=== PATIENT | male | born 2000 | race Caucasian/White ===

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

== ENCOUNTER → 2021-02-16 | Outpatient (CLI) | payer BC ==
--- NOTE | 2021-02-17 08:12 | US ---
EXAMINATION TYPE: US pelvic limited DATE OF EXAM: 02/16/2021 COMPARISON: NONE CLINICAL HISTORY: R10.2 Pelvic pain; I86.1 Scrotal varices. Left medial inguinal bulge noted intermit tently. TECHNIQUE: TA US No hernia is noted in right or left femoral area. No left medial hernia is seen superomedial left alen in at patient's area of pain. IMPRESSION: 1. No definite inguinal hernia by ultrasound.
--- NOTE | 2021-02-17 08:21 | US ---
EXAMINATION TYPE: US scrotum with doppler. Grayscale and color Doppler Duplex imaging performed of juan esquivel scrotum. DATE OF EXAM: 02/16/2021 COMPARISON: US CLINICAL HISTORY: R10.2 Pelvic pain; I86.1 Scrotal varices. Medial left inguinal pain and left scrota l pain intermittently. EXAM MEASUREMENTS: TESTICLES: Right Testicle: 4.7 x 2.7 x 1.9 cm Left Testicle: 3.9 x 3.7 x 2.0 cm EPIDIDYMIS HEAD: Right Epididymis: 0.6 x 0.8 x 0.9 cm Left Epididymis: 0.8 x 1.0 x 0.9 cm PW and Color flow Doppler was performed to assess for testicular vascularity; good bilateral color fl ow and waveforms are seen. There is no evidence of testicular torsion. Presence of hydroceles: very small amount of fluid is seen inferior right scrotal sac = 0.5 x 0.4 x 0.9cm Left epididymal head cyst is imaged = 0.3 x 0.3 x 0.3cm. Presence of varicoceles are noted in superior and inferior left scrotal sac as veins are dilated at 3 .0mm superiorly in neutral position. Inferior left scrotal sac vein is dilated at 2.6mm with Valsalva Maneuver. No hernia is seen in left inguinal canal or in superior scrotal sac. IMPRESSION: 1. No suspicious changes suggest hernia. 2. Minimal right hydrocele. 3. Epididymal cyst on left
== END | disposition home or self-care (01) ==
LOC: RADUSWWP 15:38
PROVIDERS: ATTEND Family Medicine
DX: N43.3 Hydrocele, unspecified (principal); N50.3 Cyst of epididymis; I86.1 Scrotal varices
CPT/HCPCS: 76857; 76870; 93975